=== PATIENT | female | born 1950 | race Caucasian/White ===

== ENCOUNTER 2018-04-28 18:11 | Emergency (ER) | payer MEDICARE, MEDICAID ==
[~2018-04-28] VITALS: Ht 162.6 cm; Wt 76.0 kg
[~2018-04-28 18:11] MED LIST: ASPI-1079 PO; DESL5TAB PO; GLUXL10 PO; IBUP-2029 PO; JANUMET PO; LISI40TA4 PO; PRAV40TA58 PO; RANI150T43 PO; [UNRECOGNIZED DRUG - CODE] PO
[2018-04-28 18:43] LABS: BASOPHILS % 0.6 % (0.0-2.0); EOSINOPHILS % 3.1 % (0.0-5.0); HEMOGLOBIN. 10.9 g/dL (12.0-16.0); LYMPHOCYTES % 36.2 % (20.0-50.0); MEAN CORPUSCULAR HEMOGLOBIN 28.9 pg (28.0-32.0); MEAN PLATELET VOLUME 8.3 fl (7.4-10.4); MONOCYTES % 8.5 % (2.0-8.0); NEUTROPHILS % 51.6 % (40.0-76.0); PLATELET 226 x1000/uL (130-400); RED BLOOD CELL COUNT 3.75 mill/uL (4.2-5.4)
[2018-04-28 18:49] LABS: CHLORIDE 106 mEq/L (98-107)
[2018-04-28 18:51] LABS: INR 1.1; PROTHROMBIN TIME 11.6 sec (9.4-11.6)
[2018-04-28 20:27] LABS: CLARITY URINE CLOUDY (CLEAR); COLOR URINE YELLOW (YELLOW); KETONES URINE TRACE (NEGATIVE); LEUKOCYTE ESTERASE URINE 1+ (NEGATIVE); NITRITE URINE NEGATIVE (NEGATIVE); OCCULT BLOOD URINE 3+ (NEGATIVE); PROTEIN URINE NEGATIVE (NEGATIVE); SPECIFIC GRAVITY URINE 1.022 (1.005-1.030)
[2018-04-28 22:55] VITALS: BP 141/43
== END 2018-04-28 23:07 | disposition home or self-care (01) ==
LOC: ER 18:20
DX: N39.0 Urinary tract infection, site not specified (principal); R31.0 Gross hematuria; R10.33 Periumbilical pain; I10 Essential (primary) hypertension; E11.65 Type 2 diabetes mellitus with hyperglycemia; M25.561 Pain in right knee; D64.9 Anemia, unspecified; Z87.891 Personal history of nicotine dependence
CPT/HCPCS: 36415; 80053; 81003; 82962; 83690; 85025; 85610; 99284

== ENCOUNTER 2024-03-24 14:12 | Emergency (ER) | payer MEDICARE, MEDICAID ==
[~2024-03-24] VITALS: Ht 162.6 cm; Wt 76.5 kg
[~2024-03-24 14:12] MED LIST changes: -DESL5TAB PO; +DESL5TAB55 PO; +LISI40TA13 PO; -LISI40TA4 PO; +RANI-655 PO; -RANI150T43 PO
[2024-03-24 14:18] VITALS: O2SAT 99
[2024-03-24] MEDS: ACETAMINOPHEN 325MG TABLET PO ONE (15:22)
[2024-03-24 17:05] VITALS: BP 124/51; PULSE 67; RESP 18; TEMP 98.2
== END 2024-03-24 17:21 | disposition home or self-care (01) ==
LOC: ER 14:40
DX: S09.8XXA Other specified injuries of head, initial encounter (principal); M54.9 Dorsalgia, unspecified; M25.512 Pain in left shoulder; M79.642 Pain in left hand; E11.9 Type 2 diabetes mellitus without complications; E78.00 Pure hypercholesterolemia, unspecified; I10 Essential (primary) hypertension; Z88.0 Allergy status to penicillin; W18.39XA Other fall on same level, initial encounter; Y93.89 Activity, other specified; Y92.89 Other specified places as the place of occurrence of the external cause; Y99.8 Other external cause status
CPT/HCPCS: 72128; 72131; 73030; 73120; 99284